=== PATIENT | male | born 1945 | race Caucasian/White ===

== ENCOUNTER 2017-07-17 10:04 | Day surgery (SDC) | payer BC ==
[~2017-07-17] VITALS: Ht 196.8 cm; Wt 92.5 kg
[2017-07-17] MEDS ORDERED: LIDOCAINE 2%, 20ML ONE (10:52)
[2017-07-17 11:00] VITALS: BP 131/85
[2017-07-17] MEDS ORDERED: SODIUM CHLORIDE 0.9% 1,000 ML IV SCH (11:05)
[2017-07-17] MEDS ORDERED: FLUMAZENIL 0.1 MG/1 ML, 5ML ONE (11:08)
[2017-07-17] MEDS ORDERED: MIDAZOLAM 1 MG/ML, 5ML ONE (11:08)
[2017-07-17] MEDS ORDERED: NALOXONE 1 MG/ML, 2ML ONE (11:08)
[2017-07-17] MEDS ORDERED: FENTANYL PF 100 MCG/2ML ONE (11:08)
[2017-07-17 11:14] LABS: HEMATOCRIT 44.3 % (39.2-51.8); HEMOGLOBIN 15.2 g/dL (13.7-18.0); WHITE BLOOD COUNT 8.5 x10^3/uL (3.4-10)
== END 2017-07-17 12:50 ==
LOC: OUT 10:04
PROVIDERS: ATTEND Internal Medicine
DX: C85.10 Unspecified B-cell lymphoma, unspecified site (principal); E03.9 Hypothyroidism, unspecified; Z88.6 Allergy status to analgesic agent
CPT/HCPCS: 36415; 38221; 77012; 85025; 85060; 85097; 88237; 88264; 88280; 88305; 88311; 88313; 88360; 99156; G0364; J2250; J3010; J3490; J7030; 88341; 88342; 99157; G0461; J2310

== ENCOUNTER 2019-03-26 10:01 | Day surgery (SDC) | payer BC ==
[~2019-03-26] VITALS: Ht 196.8 cm; Wt 86.4 kg
[2019-03-26 11:09] VITALS: BP 116/73
== END 2019-03-26 13:10 | disposition home or self-care (01) ==
LOC: OUT 10:01
PROVIDERS: ATTEND Internal Medicine
DX: C91.10 Chronic lymphocytic leukemia of B-cell type not having achieved remission (principal); Z72.89 Other problems related to lifestyle; Z88.5 Allergy status to narcotic agent
CPT/HCPCS: 36415; 38222; 77012; 80053; 81003; 85025; 85097; 86663; 86664; 86665; 88237; 88264; 88280; 88305; 88311; 88313; 88341; 88342; 88360; 99156; 99157; J2250; J3010; J7030; J2310